=== PATIENT | male | born 1950 | race Caucasian/White ===

== ENCOUNTER 2021-10-22 05:49 | Inpatient (IN) | payer OTHER ==
[2021-10-22] VITALS (12 sets, daily range): BP systolic 114–166; BP diastolic 64–82; PULSE 60–76; TEMP 97.6–98.7
[~2021-10-22] VITALS: Ht 188 cm; Wt 90.8 kg
[2021-10-22] MEDS ORDERED: VITAMIN D31000 I1 PO (06:40)
[2021-10-22] MEDS ORDERED: MOTRIN 800800 MG/TAB PO (06:40)
[2021-10-22] MEDS ORDERED: ZOCOR 40MG40 MG PO (06:41)
[2021-10-22] MEDS ORDERED: FLOMAX 0.40.4 MG/CAP PO ×2 (06:41→14:44)
--- NOTE | 2021-10-22 12:00 | NUR ---
returned to room from PACU per bed, awake and alert but drowsy, IV infusing and placed on pump at 125ml/hr, O2 on at 2.3L/NC and O2 sat 99%, hernandez cath patent draining clear red colored urine, has 5 abdominal sites that are CD& and open to air, hernandez cath is to traction and has some bleeding around meatus and scrotum with some swelling, has elena drain to left side, drain site has gauze dressing and CD&I, has some bloody drainage in tubing but none in bulb, states has some discomfort / that is like a pressure in abdomen, full assessment completed, see interventions for further info
--- NOTE | 2021-10-22 12:30 | NUR ---
dozes between checks, no change to bleeding around meatus or swelling to scrotum, hernandez continues to drain well, medicated at 1220 with toradol 15mg slow IV push, family now at bedside
--- NOTE | 2021-10-22 13:15 | NUR ---
a little more awake now visiting with family, bleeding around meatus remains the same and cleaned at this time, O2 sat 96% on 2/5 L and decreased to 1.5L, has been taking ice chips and provided water also, reminded not to use a straw or drink carbonated beverages and verbalizes understanding
--- NOTE | 2021-10-22 13:45 | NUR ---
medicated with scheduled tyleno, O2 sat remains at 96% on 1.5L, ward clerk in to visit
[2021-10-22] MEDS ORDERED: ZESTRIL40 MG PO (14:45)
--- NOTE | 2021-10-22 14:45 | NUR ---
awake resting in bed, states tylenol has helped discomfort, again has small amount bleeding at meatus, O2 sat 96% on 1/5L and O2 off, will monitor
--- NOTE | 2021-10-22 15:45 | NUR ---
cleaned blood from meatus, then assisted up to chair and moved well, ordered clear liquid tray, denies other needs
--- NOTE | 2021-10-22 16:43 | NUR ---
Dr Mendoza called this nurse to check on status of patient
--- NOTE | 2021-10-22 17:40 | NUR ---
remains up in chair and is comfortable, having clear liquids at this time
--- NOTE | 2021-10-22 18:50 | NUR ---
bedside shift report given to APRIL Lizama
--- NOTE | 2021-10-22 20:00 | NUR ---
PATIENT IS A&O AND SITTING UP IN BEDSIDE CHAIR. VSS. NO COMPLAINTS OF PAIN OR NAUSEA. TOLERATING CLEAR LIQUID TRAY. IV FLUIDS INFUSING INTO LEFT FORARM IV VIA PUMP. HARVEY TO DD WITH MOD AMOUNTS OF CLEAR, LIGHT PINK URINE. NOTED +3 SCROTUM EDEMA. PHUC TO COMPRESSION WITH MOD AMOUNTS OF SEROSANGINOUS DRAINAGE NOTED. ABD LAP SITES X4 AND TRANSVERSE INCISION ARE WELL APPROXIMATED. SCD'S CURRENTLY OFF. HEAD TO TOE ASSESSMENT COMPLETE. HS MEDS GIVEN. PATIENT REQUESTING TO GO FOR A WALK BEFORE AFTER HE IS DONE WITH HIS TRAY. NO OTHER NEEDS AT THIS TIME. CALL LIGHT IN REACH.
--- NOTE | 2021-10-23 00:30 | NUR ---
PATIENT C/O GAS PAIN AND IS GOING FOR ANOTHER WALK IN THE HALLS. NOTED SATURATED DRESSING TO PHUC DRAIN PATIENT WAS GETTING UP TO GO WALK. CHANGED DRAIN GAUZE, PHUC TO COMPRESSION. PATIENT MADE SEVERAL LAPS AROUND THE NURSES STATION. ASSISTED PATIENT TO GET COMFORTABLE IN BED AND APPLIED WARM BLANKET TO ABD. PATIENT NOW RESTING COMFORTABLY. LIGHT OFF. CALL LIGHT IN REACH.
[2021-10-23 03:47] VITALS: BP 118/71; PULSE 55; TEMP 98.5
--- NOTE | 2021-10-23 04:45 | NUR ---
PATIENT IS SOUND ASLEEP DURING ROUNDS AND WAS FINALLY ABLE TO GET 4 HOURS OF SLEEP. PATIENT RESTING WITHOUT NEEDS.
[2021-10-23 07:50] VITALS: BP 142/78; PULSE 57; TEMP 98.8
[2021-10-23 09:15] LABS: HEMATOCRIT 39.7 % (42.0-52.0); HEMOGLOBIN 13.4 g/dl (13.5-18.0)
[2021-10-23 09:40] LABS: CALCIUM 8.7 mg/dL (8.4-10.2); CREATININE, serum 1.16 mg/dL (0.72-1.25); POTASSIUM 4.2 mmol/L (3.5-4.5)
[2021-10-23 11:15] VITALS: BP 147/76; TEMP 98.4
--- NOTE | 2021-10-23 15:09 | NUR ---
SW met with patient to complete intake. Patient states that he lives in [facility] with is Wanda [phone] or [phone] who was present at time of intake, and was appointed as DPOA-HC at time of intake. Patient states that he does not utilize DME and is independent with ADL's, [facility] Patient states that his plan is to return home up on DC. Patient or spouse had no further questions or concerns. SW will continue to follow. DC plan: home
[2021-10-23 15:16] VITALS: BP 154/97; PULSE 66; TEMP 98.7
--- NOTE | 2021-10-23 18:09 | NUR ---
Received report from caustic cresylate shift superintendent. Patient alert and oriented x4. Patient complains of pain but denies need for pain medication. Patient's PHUC drain had excess output, Reji notified and instructed on further recommendations. Patient's dressing changed on PHUC site x3. Patient has not had food, but would take a protein shake. Patient resting in bed with call light near.
[2021-10-23 20:10] VITALS: BP 153/83; PULSE 66; TEMP 99
--- NOTE | 2021-10-23 20:10 | NUR ---
REC'D call from Dr Mendoza, wants PHUC drain compressed and output monitored over the next couple hours. 175 cc serosangiunous drainage out immediately. pt reports less discomfort afterwards.
--- NOTE | 2021-10-23 22:20 | NUR ---
rec'd another call from Dr Mendoza, reported another 170 cc output from PHUC for total of 345 cc and 925 cc output from hernandez since 1900. wants PHUC back to dependent drainage, no compression.
[2021-10-24 00:03] VITALS: BP 142/82; PULSE 74; TEMP 99.6
--- NOTE | 2021-10-24 00:45 | NUR ---
IV fluids to INT per order from Dr Mendoza
[2021-10-24 03:54] VITALS: BP 124/72; PULSE 77; TEMP 99.2
[2021-10-24 07:45] LABS: CALCIUM 9.3 mg/dL (8.4-10.2); CREATININE, serum 1.35 mg/dL (0.72-1.25); POTASSIUM 4.7 mmol/L (3.5-4.5)
[2021-10-24 07:46] VITALS: BP 124/84; PULSE 73; TEMP 98.4
[2021-10-24 12:00] VITALS: BP 123/72; PULSE 72; TEMP 98.6
--- NOTE | 2021-10-24 13:26 | NUR ---
Received report from circus performer. Patient here for robotic prostatectomy. Assessment performed. VSS. Patient complains of right flank pain. Morphine administered, dressing changed for PHUC drain. Moore to DD with good output, dark darren urine. Call light near.
[2021-10-24 15:46] VITALS: BP 121/65; PULSE 69; TEMP 98.3
--- NOTE | 2021-10-24 16:18 | NUR ---
Called Reji to report patient's urine becoming darker and blood-tinged. No concerns. Patient reports pain has subsided and is ambulating to bathroom and around halls. Will continue to monitor.
--- NOTE | 2021-10-24 20:00 | NUR ---
PATIENT IS RESTING IN BED.PATIENT IS INDENDEPENT IN THE ROOM.pATIENT REPORTS PAIN MEDICATION GIVEN PER MAR.PATIENT HAS A HARVEY WHICH IS DRAINING BLOOD TINGED URINE.DRAIN CONNECTED TO THE BAG HAS SEROSANGUINEOUS DRAINAGE.[ATIENT AMBULATES AT THE [address] WITH NO TROUBLE.NO OTHER NEEDS AT THIS TIME.
[2021-10-24 20:54] VITALS: BP 134/76; PULSE 66; TEMP 98.4
[2021-10-25] VITALS (7 sets, daily range): BP systolic 127–163; BP diastolic 73–83; PULSE 60–74; TEMP 98.2–98.9
--- NOTE | 2021-10-25 05:21 | NUR ---
PATIENT HAD A CALM NIGHT.PAIN MEDICATION ADMINISTERED PER SEP.HARVEY STILL DRAINING BLOOD TINGED URINE.DRAINAGE FROM THE DRAIN IS SEROSANGUMOUS DRAINAGE.NO OTHER NEEDS AT THIS TIME.
[2021-10-25 06:14] LABS: CALCIUM 9.4 mg/dL (8.4-10.2); CREATININE, serum 1.21 mg/dL (0.72-1.25); POTASSIUM 4.4 mmol/L (3.5-4.5)
--- NOTE | 2021-10-25 07:40 | NUR ---
resting in bed, spoke with him about staying in bed and not getting up to walk around until after Dr Mendoza has been in, verbalizes understanding, assisted with ordering breakfast
--- NOTE | 2021-10-25 08:45 | NUR ---
was not hungry this am but had choclate ensure drink and some fruit, rests in bed and denies needs at this time
--- NOTE | 2021-10-25 09:52 | NUR ---
full assessment completed, see interventions for further info, continues to have drainage from drain site in colostomy bag that is reddish in color, hernandez cath patent draining clear yellow urine in tubing, will assist with am care after IV antibiotic infused
--- NOTE | 2021-10-25 09:56 | NUR ---
First visit from the railroad operating engineer. No needs right now.
--- NOTE | 2021-10-25 11:06 | NUR ---
Dr Mendoza in to see patient, will assist with taking a shower soon
--- NOTE | 2021-10-25 11:38 | NUR ---
ambulating in [place] independently,
--- NOTE | 2021-10-25 12:00 | NUR ---
TOP LIFT COMPRESSER in and assisted him and he is up in shower at this time, at bedside
--- NOTE | 2021-10-25 12:31 | NUR ---
out of shower and resting in bed, visiting with family
--- NOTE | 2021-10-25 14:14 | NUR ---
appears to be sleeping, in bed with eyes closed, resp quiet and easy
--- NOTE | 2021-10-25 15:11 | NUR ---
appears to continue to doze, eyes closed, resp quiet and easy
--- NOTE | 2021-10-25 16:00 | NUR ---
awake and sitting up on side of bed, Dr Mendoza called to check on patient and will plan another night, is ready to take a walk in the [place], is independent
--- NOTE | 2021-10-25 17:30 | NUR ---
is feeling like trying a little more for supper, will have chicken noodle soup and saltines, denies other needs
--- NOTE | 2021-10-25 18:52 | NUR ---
bedside shift report given to Abril, RN, was unable to eat soup just didn't taste good
--- NOTE | 2021-10-25 20:30 | NUR ---
PT IN BED. IS ALERT AND ORIENTED X4. HS MEDS GIVEN. ABD DISTENDED, HAS LAP SITES X4 WITH SMALL TRANSVERSE INCISION ALL GLUED AND DRY. PHUC TO LEFT ABD TO OSTOMY BAG DRAINING SEROSANGUINOUS DRAINAGE. INT TO LFA, FLUSHES WELL. HARVEY TO BSD WITH DK YELLOW URINE. INDEPENDENT IN ROOM.
--- NOTE | 2021-10-25 23:20 | NUR ---
PT REPORTS CONTINUED PAIN TO ABD, MEDICATED WITH OXYCODONE 5MG PO AT THIS TIME.
--- NOTE | 2021-10-26 03:02 | NUR ---
PT AWAKE, REPORTS "GAS PAIN", HAS BEEN UP IN ROOM TRYING TO PASS GAS. HAS HAD ONE LOOSE STOOL THIS SHIFT. MEDICATED WITH SCHEDULED ES TYLENOL AND OXYCODONE PO AT THIS TIME.
[2021-10-26 03:49] VITALS: BP 155/87; PULSE 62; TEMP 98.4
--- NOTE | 2021-10-26 06:45 | NUR ---
Report received, assumed care for day shift.
[2021-10-26 07:49] VITALS: BP 169/78; PULSE 62; TEMP 99.1
--- NOTE | 2021-10-26 07:58 | NUR ---
Assessment complete. A&Ox3. Denies pain/nausea/shortness of breath. VS stable-slightly elevated BP-home BP meds initiated. INT to left forearm flushes well-no redness/drainage noted. Lap sites X5-edges well approximated/no drainage noted-surgical glue. PHUC drain with small amount of serosanguineous fluid to ostomy bag. Moore cath with clear yellow urine. SCDs bilat. Plan of care discussed for this shift to include meds/pain control/ambulation/calling for questions/concerns. Verbalizes understanding/denies needs. Call light in reach. Will monitor.
--- NOTE | 2021-10-26 11:15 | NUR ---
Resting in bed visiting with spouse. Denies pain/nausea/shortness of breath. VS remain stable. Denies current needs. Call light in reach. Will monitor.
[2021-10-26 11:24] VITALS: BP 142/74; PULSE 64; TEMP 98.7
--- NOTE | 2021-10-26 13:30 | NUR ---
Dr Mendoza at bedside.
[2021-10-26] MEDS ORDERED: LEVAQUIN 5500 MG/TA1 PO (14:07)
--- NOTE | 2021-10-26 14:14 | NUR ---
Moore cath/PHUC drain education provided to both patient and spouse. Supplies given.
--- NOTE | 2021-10-26 14:30 | NUR ---
Discharge instructions given both verbal and handwritten. Discussed s/s of infection, follow up appt, home medications and hernandez cath/drain care. Supplies given. All questions answered. INT to left forearm DCd cath intact. Escorted off floor in wheelchair by PCT escorted by spouse in stable condition.
== END 2021-10-26 14:30 | disposition home or self-care (01) | DRG 707 ==
LOC: SURG 05:49 → INPTSU 05:49 → SURG 07:30
PROVIDERS: ADMIT Urology
PROC: 0TQC0ZZ Repair Bladder Neck, Open Approach (ICD-10-PCS; 2021-10-22)
PROC: 0TCB4ZZ Extirpation of Matter from Bladder, Percutaneous Endoscopic Approach (ICD-10-PCS; 2021-10-22)
PROC: 8E0W3CZ Robotic Assisted Procedure of Trunk Region, Percutaneous Approach (ICD-10-PCS; 2021-10-22)
PROC: 0VT00ZZ Resection of Prostate, Open Approach (ICD-10-PCS; principal; 2021-10-22 07:30)
DX: C61 Malignant neoplasm of prostate (principal); R39.0 Extravasation of urine; N21.0 Calculus in bladder; N40.1 Benign prostatic hyperplasia with lower urinary tract symptoms; R33.8 Other retention of urine; I10 Essential (primary) hypertension; E78.5 Hyperlipidemia, unspecified; Z88.0 Allergy status to penicillin
CPT/HCPCS: A4314; J0690; J1100; J1650; J1885; J1956; J2250; J2270; J2405; J2704; J3010; J7120

== ENCOUNTER → 2021-11-04 | Outpatient (CLI) | payer OTHER ==
[~2021-11-04] MED LIST: CEPHALEXIN500 M1 PO; FLOMAX 0.40.4 MG/CAP PO; LEVAQUIN 5500 MG/TA1 PO; MOTRIN 800800 MG/TAB PO; VITAMIN D31000 I1 PO; ZESTRIL40 MG PO; ZOCOR 40MG40 MG PO
== END ==
LOC: COL.RAD 07:48
DX: S37.20XA Unspecified injury of bladder, initial encounter (principal); C61 Malignant neoplasm of prostate; N99.71 Accidental puncture and laceration of a genitourinary system organ or structure during a genitourinary system procedure; X58.XXXA Exposure to other specified factors, initial encounter
CPT/HCPCS: Q9967

== ENCOUNTER → 2021-11-18 | Outpatient (CLI) | payer OTHER | LOC: COL.RAD 09:30 | DX: C61 Malignant neoplasm of prostate (principal); N99.71 Accidental puncture and laceration of a genitourinary system organ or structure during a genitourinary system procedure | CPT/HCPCS: Q9967 ==

== ENCOUNTER → 2021-11-23 | Day surgery (SDC) | payer OTHER ==
[~2021-11-23] VITALS: Ht 188 cm; Wt 86.5 kg
[2021-11-23] VITALS (7 sets, daily range): BP systolic 133–155; BP diastolic 76–90; PULSE 60–74; TEMP 97.6
--- NOTE | 2021-11-23 13:58 | NUR ---
1120: Patient arrived back into bay 1 from PACU. Patient is alert and oriented. Vital signs stable. Report received from Allison. Patient requesting water and saltines. Patient denies pain. Denies nausea. Call light left within reach. at bedside. 1130: Patient requesting a stat lock be applied since one was not applied in OR. Area cleaned with soap and water and dried, skin prepped applied, stat lock applied on left upper leg. Patient states he does not need more hernandez catheter supplies has he has had a catheter for the past month and has enough at home. 1145: Patient vitally stable. Tolerating food and drink well. Denies pain or nausea at this time. No discharge orders in computer. Dr. Mendoza notified. Unable to reach at this time. Left message to call back. 1200: Dr. Mendoza called back and said he will be putting in discharge orders for patient. 1215: Patient tolerating food and drink. Office will call patient to set up follow up appointments per [facility] medical front desk coordinator. Communicated this to patient and both verbalized understanding. 1230: Patient meets discharge criteria at this time. Vital signs stable. Denies pain or nausea. IV removed without complications. Went through discharge instructions with patient and . Patient got dressed. Escorted to patient entrance via wheelchair. Patient got into personal vehicle unassisted and left in the care of his .
== END ==
LOC: SDCO 07:52
DX: R39.0 Extravasation of urine (principal); C61 Malignant neoplasm of prostate; Z28.310 Unvaccinated for COVID-19; Z28.9 Immunization not carried out for unspecified reason
CPT/HCPCS: C1769; J0690; J1100; J1885; J2405; J2704; J3010; J7120; Q9967

== ENCOUNTER → 2021-12-07 | Outpatient (CLI) | payer OTHER | LOC: COL.RAD 12:28 | DX: R39.0 Extravasation of urine (principal) | CPT/HCPCS: Q9967 ==